=== PATIENT | male | born 1965 | race Caucasian/White ===

== ENCOUNTER 2017-09-30 08:24 | Emergency (ER) | payer OTHER ==
[~2017-09-30] VITALS: Ht 182.9 cm; Wt 95.7 kg
[2017-09-30 08:30] VITALS: TEMP 36.7; Ht 182.9 cm; Wt 95.7 kg
--- NOTE | 2017-09-30 08:46 | EMERGENCY ROOM VISIT NOTE ---
History Report prepared by Evgeny: Francisco Zamarripa Under the Supervision of: Dr. Jeffrey Rothman M.D. First contact with patient: 08:35 Chief Complaint: BACK PAIN Stated Complaint: SEVERE BACK PAIN History of Present Illness The patient is a 51 year old white male with no significant past medical history who presents to the Emergency Room with complaints of waxing and waning back pain that began on Tuesday, 6 days prior to arrival. The patient states that his father began to fall on Tuesday, so he tried to catch him. When he caught the weight of his father he believes something got "twisted up" in his lower back. He describes the pains as intermittent "twinges and shocks." He adds that Ibuprofen and cold compress have been improving his symptoms. He denies any bowel or blader incontinence. There has not been any saddle anesthesia. Source of History: patient Onset: 6 days [employer] Position: back Quality: shock-like, other ("twinges") Timing: intermittent, waxes/wanes Modifying Factors (Relieving): ibuprofen, ice Associated Symptoms: No urinary symptoms, No numbness Review of Systems See HPI for pertinent positives and negatives. A total of ten systems were reviewed and were otherwise negative. Past Medical & Surgical No past medical history. Social History Smoking Status: Never Smoker Drug Use: none Marital Status: single Occupation Status: employed Current/Historical Medications Scheduled Methylprednisolone (Medrol Dosepak), 1 PKT PO DAILY Physical Exam Vital Signs Date Time Temp Pulse Resp B/P (MAP) Pulse Ox O2 Delivery O2 Flow Rate FiO2 09/30/17 10:09 68 18 111/78 96 09/30/17 08:30 36.7 62 18 124/85 96 Room Air Physical Exam GENERAL: Awake, alert, well-appearing, NAD HENT: Normocephalic, atraumatic. EYES: Normal conjunctiva. Sclera non-icteric. PERRL. No anisocoria. NECK: Supple. No nuchal rigidity. FROM. RESPIRATORY: CTAB, no rhonchi, wheezing, crackles CARDIAC: RRR, no MRG ABDOMEN: Soft, NTND, BS+ MSK: No chest wall TTP, no LE edema NEURO: GCS 15, CN 2-12 intact, moves all 4s on command. Negative straight leg bilaterally. 5/5 strength in lower extremity. No saddle anesthesia. SKIN: No rash or jaundice noted. Medical Decision & Procedures ER Provider Diagnostic Interpretation: Radiology results as stated below per my review and radiologist interpretation: LUMBAR SPINE 3 VIEWS HISTORY: Low back pain, recent lifting injury, NVI distally COMPARISON: None. FINDINGS: There is no fracture. No subluxation. Disc spaces are preserved. Mild facet degenerative changes at the lower lumbar spine. IMPRESSION: No fracture or subluxation within the lumbar spine. Mild facet osteoarthritis. Electronically signed by: Derrell Villela M.D. 09/30/2017 9:30 AM Dictated Date/Time: 09/30/2017 9:29 AM Medications Administered Medications (Trade) Dose Ordered Sig/Alex Route Start Time Stop Time Status Last Admin Dose Admin Cyclobenzaprine HCl (Flexeril Tab) 10 mg ONE STAT PO 09/30/17 08:47 09/30/17 08:49 DC 09/30/17 10:01 10 MG Acetaminophen (Tylenol Tab) 650 mg NOW STAT PO 09/30/17 08:47 09/30/17 08:49 DC 09/30/17 08:56 650 MG Methylprednisolone (Medrol Tab) 24 mg NOW ONCE PO 09/30/17 09:00 09/30/17 09:01 DC 09/30/17 09:27 24 MG ED Course 0839: The patient was evaluated in room B3B. A complete history and physical exam was performed. 0951: I reevaluated the patient. Discussed results and discharge instructions: He verbalized understanding and agreement. The patient is ready for discharge. Medical Decision The patient is a 51 year old white male with no significant past medical history who presents to the Emergency Room with complaints of waxing and waning back pain that began on Tuesday, 6 days prior to arrival. Nursing notes reviewed. Ancillary studies and prior records reviewed. Differential diagnosis: Etiologies such as musculoskeletal, disc herniation, fracture, aortic disease, metastatic disease, cord compression, discitis, infection, renal colic, gastrointestinal, acute exacerbation of chronic back pain, sciatica, cauda equina, as well as others were entertained. Patient was seen and evaluated the bedside. Patient states that he was trying to assist his father after he had fallen and had a somewhat awkward positioning while holding his father upright. The patient does have intermittent what he describes as almost a spasm as he will tend since he is up with twinges of pain. Patient describes it as low and central. Patient states the pain is nonradiating. On exam the patient has no saddle anesthesia and per history denies any bowel or bladder incontinence or retention. The patient does not have a positive straight leg raise. Patient does not have any reproducible discomfort at this time. Patient has had improvement with ibuprofen. Patient denies any IV drug abuse, bowel or bladder incontinence, numbness, tingling, or weakness. The patient is not a diabetic and denies any fever. Patient has not had any unexplained weight loss and does not receive any immunosuppressant therapy and has no known history of cancer. Patient did have plain films completed along with medications for symptom control. Upon reassessment the patient was feeling improved and informed of his x-ray findings. Patient was deemed suitable for outpatient follow-up and treatment at this time and was told to follow-up with his PCP if he has persistent discomfort. Patient was also given warning signs for which to return. Patient was given strict follow-up, discharge, and return precautions. All questions were answered. Patient was deemed suitable for outpatient follow-up at this time. Patient agreed with the plan of care and was safely discharged home. Medication Reconcilliation Current Medication List: was personally reviewed by me Blood Pressure Screening Patient's blood pressure: Normal blood pressure Impression Primary Impression: Back spasm Scribe Attestation The scribe's documentation has been prepared under my direction and personally reviewed by me in its entirety. I confirm that the note above accurately reflects all work, treatment, procedures, and medical decision making performed by me. Departure Information Dispostion Home / Self-Care Prescriptions Methylprednisolone (MEDROL DOSEPAK) 4 Mg Niranjan 1 PKT PO DAILY, #1 PKT Prov: Jeffrey Rothman M.D. 09/30/17 Referrals No Doctor, Assigned (PCP) Patient Instructions Back Pain - [facility], Back Pain Relieve, ED Spasm Back No Trauma, [facility] Additional Instructions Please return to the emergency department if you have worsening or recurrent symptoms not amenable to at-home treatment. Please call for a follow-up appointment with her primary care physician. Please take your medications as prescribed. If you have other concerns and/or complaints please feel free to also call your primary care physician's office or return the ED for further evaluation, management, and treatment. You may take 600 mg Ibuprofen every 6 hours as needed for pain/fever with food unless told by your physician not to take NSAIDs. You may take tylenol 650 mg every 6 hours as needed for pain/fever unless told by your physician to not take it or have liver problems. You may take motrin and tylenol separately or at the same time. Please take your steroids preferably in the morning and with food as they may cause some upset stomach and cause you to be very awake and alert. Take your medications as prescribed. You have been examined and treated today on an emergency basis only. This is not a substitute for, or an effort to provide, complete comprehensive medical care. It is impossible to recognize and treat all injuries or illnesses in a single emergency department visit. It is therefore important that you follow up closely with [facility], your PCP, and/or your specialist(s). Call as soon as possible for an appointment. Thank you for your time and consideration. I look forward to speaking with you again soon. Please don't hesitate to call us if you have any questions.
[2017-09-30] MEDS ORDERED: CYCLOBENZAPRINE HCL 5 MG TAB PO STA (08:47)
[2017-09-30] MEDS ORDERED: ACETAMINOPHEN 325 MG TAB PO STA (08:47)
[2017-09-30] MEDS ORDERED: METHYLPREDNISOLONE 16 MG TAB PO ONE (09:00)
--- NOTE | 2017-09-30 09:32 | DIAGNOSTIC IMAGING REPORT ---
LUMBAR SPINE 3 VIEWS HISTORY: Low back pain, recent lifting injury, NVI distally COMPARISON: None. FINDINGS: There is no fracture. No subluxation. Disc spaces are preserved. Mild facet degenerative changes at the lower lumbar spine. IMPRESSION: No fracture or subluxation within the lumbar spine. Mild facet osteoarthritis. Electronically signed by: Derrell Villela M.D. 09/30/2017 9:30 AM Dictated Date/Time: 09/30/2017 9:29 AM
[2017-09-30] MEDS ORDERED: METH4PAK PO (09:55)
[2017-09-30] MEDS ORDERED: EMPTY 8 DRAM VIAL ONE (09:58)
[2017-09-30 10:09] VITALS: BP 111/78; PULSE 68; O2SAT 96
== END 2017-09-30 10:07 | disposition home or self-care (01) ==
LOC: C.EDB 08:25
DX: M62.830 Muscle spasm of back (principal); X50.0XXA Overexertion from strenuous movement or load, initial encounter